=== PATIENT | female | born 1950 | race Caucasian/White ===

== ENCOUNTER 2016-07-29 07:22 | Day surgery (SDC) | payer MEDICARE, OTHER ==
[2016-07-29] MEDS ORDERED: FENTANYL CITRATE 50 MCG/ML SOL ONE (07:47)
[2016-07-29] MEDS ORDERED: LIDOCAINE HCL 1% MPF SOL ONE (07:48)
[2016-07-29] MEDS ORDERED: PROPOFOL 500 MG/50 ML EMU IV ONE (07:48)
[2016-07-29] MEDS ORDERED: BUPIVACAINE/EPI 0.5% 10 ML SOL INFIL ONE ×2 (07:55→07:56)
[2016-07-29 09:55] VITALS: RESP 20
[2016-07-29 10:05] VITALS: TEMP 97.5
[2016-07-29 10:12] VITALS: BP 120/50; PULSE 65; O2SAT 95
== END 2016-07-29 10:30 | disposition home or self-care (01) | DRG 558 ==
LOC: SURG 07:22
PROVIDERS: ATTEND Surgery
DX: M71.812 Other specified bursopathies, left shoulder (principal)
CPT/HCPCS: J3010; A6402; J2001; J2704

== ENCOUNTER 2017-03-11 14:22 | Outpatient (CLI) | payer MEDICARE, OTHER ==
[2016-07-29 10:12] VITALS: O2SAT 95
== END 2017-03-11 14:23 | disposition home or self-care (01) | DRG 554 ==
LOC: CONVCARE 14:22
PROVIDERS: ATTEND Orthopaedic Surgery
DX: M17.0 Bilateral primary osteoarthritis of knee (principal)
CPT/HCPCS: 73564

== ENCOUNTER 2017-04-15 05:35 | Inpatient (IN) | payer MEDICARE, OTHER ==
[2017-04-15] MEDS ORDERED: LACTATED RINGERS 1,000 ML IV ONE (06:00)
[2017-04-15] MEDS ORDERED: SCOPOLAMINE 1.5MG PATCH TD SCH (06:00)
[2017-04-15] MEDS ORDERED: LACTATED RINGERS 1,000 ML IV SCH (07:00)
[2017-04-15] MEDS ORDERED: SODIUM CHLORIDE 20 ML 40 ML ONE (07:09)
[2017-04-15] MEDS ORDERED: TETRACAINE HCL 1% SOL ONE (07:30)
[2017-04-15] MEDS ORDERED: KETAMINE HYDROCHLORIDE 50 MG/ML SOL ONE (08:55)
[2017-04-15] MEDS ORDERED: CEFAZOLIN SODIUM 1 GM PDS ONE ×2 (09:03→16:46)
[2017-04-15] MEDS ORDERED: EPHEDRINE SULFATE 50 MG/ML SOL ONE (09:04)
[2017-04-15] MEDS ORDERED: ONDANSETRON HCL 4 MG/2 ML SOL ONE (09:17)
[2017-04-15] MEDS ORDERED: METOCLOPRAMIDE HYDROCHLORIDE 5 MG/ML SOL ONE (09:17)
[2017-04-15] MEDS ORDERED: DEXAMETHASONE 20 MG/5 ML (4 MG/ML SOL) ONE (09:17)
[2017-04-15] MEDS ORDERED: PROPOFOL 500 MG/50 ML EMU IV ONE ×2 (09:47→10:59)
[2017-04-15] MEDS: BUPIVACAINE LIPOSOME 20 ML SUS ONE ×2 (10:08→11:09)
[2017-04-15] MEDS ORDERED: SODIUM CHLORIDE 0.9% FLUSH 10 ML SOL IV ONE ×2 (10:08→11:09)
[2017-04-15] MEDS: TRANEXAMIC ACID 100 MG/ML SOL ONE ×2 (10:20→11:17)
[2017-04-15] MEDS ORDERED: TEMAZEPAM 15MG 15 MG CAP PO PRN (11:25)
[2017-04-15] MEDS ORDERED: MORPHINE SULFATE 10 MG/ML SOL IM PRN (11:25)
[2017-04-15] MEDS ORDERED: ALUMINUM/MAGNESIUM 30 ML SUS PO PRN (11:25)
[2017-04-15] MEDS ORDERED: DIPHENHYDRAMINE 25 MG CAP PO PRN (11:25)
[2017-04-15] MEDS ORDERED: MAGNESIUM HYDROXIDE 30 ML SUS PO PRN (11:25)
[2017-04-15] MEDS ORDERED: ONDANSETRON HCL 4 MG/2 ML SOL IV PRN (11:25)
[2017-04-15] MEDS ORDERED: DIAZEPAM 5 MG TAB PO PRN (11:25)
[2017-04-15] MEDS ORDERED: SODIUM CHLORIDE 0.9% 500 ML 500 ML IV PRN (11:25)
[2017-04-15] MEDS ORDERED: FLEET ENEMA PR PRN (11:25)
[2017-04-15] MEDS ORDERED: BISACODYL 10 MG SUP PR PRN (11:25)
[2017-04-15] MEDS ORDERED: ONDANSETRON 4 MG ODT BU PRN (11:25)
[2017-04-15] MEDS ORDERED: FUROSEMIDE 40 MG TAB PO SCH (11:45)
[2017-04-15] MEDS ORDERED: BUPIVACAINE HCL 0.25% MPF 10 ML SOL INFIL ONE (12:15)
[2017-04-15] MEDS: SODIUM CHLORIDE 0.9% FLUSH 10 ML SOL IV SCH ×2 (13:06→19:15)
[2017-04-15] MEDS: ACETAMINOPHEN 500 MG 500 MG TAB PO SCH ×3 (13:09→20:27)
[2017-04-15] MEDS ORDERED: CALCIUM WITH VITAMIN D PO SCH (14:00)
[2017-04-15] MEDS: GABAPENTIN 300 MG CAP PO SCH ×2 (14:56→20:25)
[2017-04-15] MEDS: DEXTROSE/SALINE 0.45% 1,000 ML IV SCH ×2 (14:59→22:31)
[2017-04-15] MEDS ORDERED: SODIUM CHLORIDE 0.9% 100 ML 100 ML IV ONE (16:46)
[2017-04-15] MEDS: CEFAZOLIN SODIUM 1 GM PDS 2 GM in SODIUM CHLORIDE 0.9% 100 ML 100 ML IV SCH (17:03)
[2017-04-15] MEDS: OXYCODONE HYDROCHLORIDE 5 MG TAB PO PRN ×3 (19:19→22:56)
[2017-04-15] MEDS: CALCIUM CARBONATE 500 MG TAB PO SCH (20:25)
[2017-04-15] MEDS: AMITRIPTYLINE 25 MG TAB PO SCH (20:25)
[2017-04-15] MEDS: SENNOSIDES A AND B 8.6 MG TAB PO SCH (20:26)
[2017-04-15] MEDS: SIMVASTATIN 20 MG TAB PO SCH (20:28)
[2017-04-16] MEDS ORDERED: CEFAZOLIN SODIUM 1 GM PDS ONE (00:36)
[2017-04-16] MEDS ORDERED: SODIUM CHLORIDE 0.9% 100 ML 100 ML IV ONE (00:36)
[2017-04-16] MEDS: CEFAZOLIN SODIUM 1 GM PDS 2 GM in SODIUM CHLORIDE 0.9% 100 ML 100 ML IV SCH (01:21)
[2017-04-16] MEDS: SODIUM CHLORIDE 0.9% FLUSH 10 ML SOL IV SCH ×5 (01:26→20:27)
[2017-04-16] MEDS: OXYCODONE HYDROCHLORIDE 5 MG TAB PO PRN ×6 (02:10→20:31)
[2017-04-16 07:11] LABS: MEAN CORPUSCULAR HGB CONC 35.9 gm/dl (32.0-36.0)
[2017-04-16] MEDS: DEXTROSE/SALINE 0.45% 1,000 ML IV SCH ×2 (08:45→19:51)
[2017-04-16] MEDS: ACETAMINOPHEN 500 MG 500 MG TAB PO SCH ×4 (08:47→20:30)
[2017-04-16] MEDS: CELECOXIB 100 MG CAP PO SCH (08:48)
[2017-04-16] MEDS: GABAPENTIN 300 MG CAP PO SCH ×3 (08:48→20:28)
[2017-04-16] MEDS: CALCIUM CARBONATE 500 MG TAB PO SCH ×3 (08:48→20:29)
[2017-04-16] MEDS: MULTIVITAMIN2 1 EA TAB PO SCH (08:49)
[2017-04-16] MEDS: POTASSIUM CHLORIDE 10 MEQ TER PO SCH (08:49)
[2017-04-16] MEDS: CHOLECALCIFEROL 1,000 IU TAB PO SCH (08:50)
[2017-04-16] MEDS: RIVAROXABAN 10 MG TAB PO SCH (08:51)
[2017-04-16] MEDS: SERTRALINE HYDROCHLORIDE 50 MG TAB PO SCH (08:51)
[2017-04-16] MEDS ORDERED: HYDROCHLOROTHIAZIDE 25 MG TAB PO SCH (09:00)
[2017-04-16] MEDS: BUDESONIDE 3 MG ECC PO SCH (09:00)
[2017-04-16] MEDS ORDERED: LISINOPRIL 20 MG TAB PO SCH (09:00)
[2017-04-16] MEDS ORDERED: LEVOTHYROXINE SODIUM 50 MCG TAB PO SCH (09:00)
[2017-04-16] MEDS: LEVOTHYROXINE SODIUM 50 MCG TAB PO SCH (10:56)
[2017-04-16] MEDS: AMITRIPTYLINE 25 MG TAB PO SCH (20:28)
[2017-04-16] MEDS: SENNOSIDES A AND B 8.6 MG TAB PO SCH (20:30)
[2017-04-16] MEDS: SIMVASTATIN 20 MG TAB PO SCH (20:31)
[2017-04-17] MEDS: OXYCODONE HYDROCHLORIDE 5 MG TAB PO PRN ×7 (00:17→21:48)
[2017-04-17] MEDS: SODIUM CHLORIDE 0.9% FLUSH 10 ML SOL IV SCH ×6 (03:20→20:11)
[2017-04-17] MEDS: LEVOTHYROXINE SODIUM 50 MCG TAB PO SCH (06:42)
[2017-04-17 07:25] LABS: MEAN CORPUSCULAR HGB CONC 33.7 gm/dl (32.0-36.0)
[2017-04-17 07:30] LABS: CALCIUM 8.8 mg/dl (8.5-10.1); POTASSIUM 3.9 mMol/L (3.5-5.1)
[2017-04-17] MEDS ORDERED: SODIUM CHLORIDE 0.9% 250 ML 250 ML IV SCH (09:45)
[2017-04-17] MEDS: ACETAMINOPHEN 500 MG 500 MG TAB PO SCH ×4 (09:48→20:15)
[2017-04-17] MEDS: CALCIUM CARBONATE 500 MG TAB PO SCH ×3 (09:49→20:14)
[2017-04-17] MEDS: CELECOXIB 100 MG CAP PO SCH (09:49)
[2017-04-17] MEDS: GABAPENTIN 300 MG CAP PO SCH ×3 (09:49→20:13)
[2017-04-17] MEDS: CHOLECALCIFEROL 1,000 IU TAB PO SCH (09:50)
[2017-04-17] MEDS: POTASSIUM CHLORIDE 10 MEQ TER PO SCH (09:50)
[2017-04-17] MEDS: MULTIVITAMIN2 1 EA TAB PO SCH (09:50)
[2017-04-17] MEDS: RIVAROXABAN 10 MG TAB PO SCH (09:51)
[2017-04-17] MEDS: SERTRALINE HYDROCHLORIDE 50 MG TAB PO SCH (09:51)
[2017-04-17] MEDS ORDERED: SODIUM CHLORIDE 0.9% 500 ML 500 ML IV ONE (15:11)
[2017-04-17] MEDS: AMITRIPTYLINE 25 MG TAB PO SCH (20:12)
[2017-04-17] MEDS: SENNOSIDES A AND B 8.6 MG TAB PO SCH (20:14)
[2017-04-17] MEDS: SIMVASTATIN 20 MG TAB PO SCH (20:15)
[2017-04-18] MEDS: OXYCODONE HYDROCHLORIDE 5 MG TAB PO PRN ×5 (03:34→20:18)
[2017-04-18] MEDS: SODIUM CHLORIDE 0.9% FLUSH 10 ML SOL IV SCH ×4 (03:35→20:12)
[2017-04-18] MEDS: LEVOTHYROXINE SODIUM 50 MCG TAB PO SCH (06:35)
[2017-04-18 07:20] LABS: MEAN CORPUSCULAR HGB CONC 35.2 gm/dl (32.0-36.0)
[2017-04-18 07:23] LABS: POTASSIUM 4.4 mMol/L (3.5-5.1)
[2017-04-18] MEDS: CELECOXIB 100 MG CAP PO SCH (08:36)
[2017-04-18] MEDS: CALCIUM CARBONATE 500 MG TAB PO SCH ×3 (08:36→20:16)
[2017-04-18] MEDS: GABAPENTIN 300 MG CAP PO SCH ×3 (08:38→20:16)
[2017-04-18] MEDS: CHOLECALCIFEROL 1,000 IU TAB PO SCH (08:38)
[2017-04-18] MEDS: MULTIVITAMIN2 1 EA TAB PO SCH (08:38)
[2017-04-18] MEDS: ACETAMINOPHEN 500 MG 500 MG TAB PO SCH ×4 (08:38→20:17)
[2017-04-18] MEDS: RIVAROXABAN 10 MG TAB PO SCH (08:38)
[2017-04-18] MEDS: SERTRALINE HYDROCHLORIDE 50 MG TAB PO SCH (08:40)
[2017-04-18] MEDS: AMITRIPTYLINE 25 MG TAB PO SCH (20:15)
[2017-04-18] MEDS: SENNOSIDES A AND B 8.6 MG TAB PO SCH (20:16)
[2017-04-18] MEDS: SIMVASTATIN 20 MG TAB PO SCH (20:18)
[2017-04-19] MEDS: OXYCODONE HYDROCHLORIDE 5 MG TAB PO PRN ×2 (01:06→06:28)
[2017-04-19] MEDS: LEVOTHYROXINE SODIUM 50 MCG TAB PO SCH (06:28)
[2017-04-19 07:20] LABS: CALCIUM 9.3 mg/dl (8.5-10.1)
[2017-04-19 07:51] VITALS: BP 101/69; PULSE 74; RESP 18; TEMP 97.4; O2SAT 97
[2017-04-19] MEDS: CHOLECALCIFEROL 1,000 IU TAB PO SCH (09:01)
[2017-04-19] MEDS: MULTIVITAMIN2 1 EA TAB PO SCH (09:02)
[2017-04-19] MEDS: RIVAROXABAN 10 MG TAB PO SCH (09:02)
[2017-04-19] MEDS: CALCIUM CARBONATE 500 MG TAB PO SCH (09:02)
[2017-04-19] MEDS: SERTRALINE HYDROCHLORIDE 50 MG TAB PO SCH (09:02)
[2017-04-19] MEDS: ACETAMINOPHEN 500 MG 500 MG TAB PO SCH (09:02)
[2017-04-19] MEDS: GABAPENTIN 300 MG CAP PO SCH (09:03)
[2017-04-19] MEDS: CELECOXIB 100 MG CAP PO SCH (09:03)
[2017-04-19] MEDS: BUDESONIDE 3 MG ECC PO SCH (11:01)
== END 2017-04-19 12:18 | disposition swing bed (61) | DRG 462 ==
LOC: ACUTE CARE 05:35
PROVIDERS: ADMIT Orthopaedic Surgery; ATTEND Orthopaedic Surgery
PROC: 0SRC0J9 Replacement of Right Knee Joint with Synthetic Substitute, Cemented, Open Approach (ICD-10-PCS; 2017-04-15)
PROC: F01ZBZZ Bed Mobility Assessment (ICD-10-PCS; 2017-04-15)
PROC: F01ZCZZ Transfer Assessment (ICD-10-PCS; 2017-04-15)
PROC: 0SRD0J9 Replacement of Left Knee Joint with Synthetic Substitute, Cemented, Open Approach (ICD-10-PCS; principal; 2017-04-15 08:00)
PROC: 30233N1 Transfusion of Nonautologous Red Blood Cells into Peripheral Vein, Percutaneous Approach (ICD-10-PCS; 2017-04-17)
DX: M17.0 Bilateral primary osteoarthritis of knee (principal); E87.1 Hypo-osmolality and hyponatremia; D64.9 Anemia, unspecified; E03.9 Hypothyroidism, unspecified; E78.5 Hyperlipidemia, unspecified; I10 Essential (primary) hypertension; M21.061 Valgus deformity, not elsewhere classified, right knee; M21.162 Varus deformity, not elsewhere classified, left knee; K52.832 Lymphocytic colitis; R33.9 Retention of urine, unspecified; R41.0 Disorientation, unspecified
CPT/HCPCS: 36415; 73560; 80048; 85027; 94150; 99070; J0690; J1100; J2250; J2270; J2405; J2765; P9016; A6232; J2704; L1830; Q3014

== ENCOUNTER 2017-04-19 09:12 | Inpatient (IN) | payer MEDICARE, OTHER ==
[2017-04-19] MEDS ORDERED: MAGNESIUM HYDROXIDE 30 ML SUS PO PRN (12:11)
[2017-04-19] MEDS: OXYCODONE HYDROCHLORIDE 5 MG TAB PO PRN ×3 (13:28→21:55)
[2017-04-19] MEDS: BUDESONIDE 3 MG ECC PO SCH (14:19)
[2017-04-19] MEDS: ACETAMINOPHEN 500 MG 500 MG TAB PO SCH ×3 (14:22→20:46)
[2017-04-19] MEDS: GABAPENTIN 300 MG CAP PO SCH ×2 (14:22→20:46)
[2017-04-19] MEDS: CALCIUM CARBONATE 500 MG TAB PO SCH ×2 (15:22→20:46)
[2017-04-19] MEDS: FISH OIL 500 MG CAP PO SCH (20:45)
[2017-04-19] MEDS: AMITRIPTYLINE 25 MG TAB PO SCH (20:45)
[2017-04-19] MEDS: SIMVASTATIN 20 MG TAB PO SCH (20:47)
[2017-04-19 23:53] VITALS: RESP 16
[2017-04-20] MEDS: OXYCODONE HYDROCHLORIDE 5 MG TAB PO PRN ×4 (03:03→23:02)
[2017-04-20] MEDS: LEVOTHYROXINE SODIUM 50 MCG TAB PO SCH (06:53)
[2017-04-20] MEDS ORDERED: LEVOTHYROXINE SODIUM 50 MCG TAB PO SCH (07:00)
[2017-04-20] MEDS ORDERED: ACETAMINOPHEN 500 MG 500 MG TAB PO PRN (07:00)
[2017-04-20] MEDS: CHOLECALCIFEROL 1,000 IU TAB PO SCH (08:47)
[2017-04-20] MEDS: SERTRALINE HYDROCHLORIDE 50 MG TAB PO SCH (08:47)
[2017-04-20] MEDS: MULTIVITAMIN2 1 EA TAB PO SCH (08:48)
[2017-04-20] MEDS: CALCIUM CARBONATE 500 MG TAB PO SCH ×3 (08:48→20:15)
[2017-04-20] MEDS: NAPROXEN 500 MG TAB PO SCH (08:48)
[2017-04-20] MEDS: CELECOXIB 100 MG CAP PO SCH (08:48)
[2017-04-20] MEDS: FISH OIL 500 MG CAP PO SCH ×2 (08:48→20:15)
[2017-04-20] MEDS: GABAPENTIN 300 MG CAP PO SCH ×3 (08:48→20:13)
[2017-04-20] MEDS: RIVAROXABAN 10 MG TAB PO SCH (08:48)
[2017-04-20] MEDS: LISINOPRIL 20 MG TAB PO SCH (08:52)
[2017-04-20] MEDS ORDERED: ACETAMINOPHEN 500 MG 500 MG TAB PO SCH (09:00)
[2017-04-20] MEDS: ACETAMINOPHEN 500 MG 500 MG TAB PO SCH ×2 (13:21→20:13)
[2017-04-20] MEDS: AMITRIPTYLINE 25 MG TAB PO SCH (20:14)
[2017-04-20] MEDS: SIMVASTATIN 20 MG TAB PO SCH (20:16)
[2017-04-20] MEDS: SENNOSIDES A AND B 8.6 MG TAB PO SCH (20:16)
[2017-04-21] MEDS: ACETAMINOPHEN 500 MG 500 MG TAB PO SCH ×4 (01:15→19:09)
[2017-04-21] MEDS: OXYCODONE HYDROCHLORIDE 5 MG TAB PO PRN ×3 (06:26→22:12)
[2017-04-21] MEDS: LEVOTHYROXINE SODIUM 50 MCG TAB PO SCH (06:26)
[2017-04-21] MEDS: FISH OIL 500 MG CAP PO SCH ×2 (09:07→20:06)
[2017-04-21] MEDS: CELECOXIB 100 MG CAP PO SCH (09:07)
[2017-04-21] MEDS: CALCIUM CARBONATE 500 MG TAB PO SCH ×3 (09:08→20:07)
[2017-04-21] MEDS: GABAPENTIN 300 MG CAP PO SCH ×3 (09:08→20:06)
[2017-04-21] MEDS: NAPROXEN 500 MG TAB PO SCH (09:08)
[2017-04-21] MEDS: SENNOSIDES A AND B 8.6 MG TAB PO SCH ×2 (09:09→20:07)
[2017-04-21] MEDS: MULTIVITAMIN2 1 EA TAB PO SCH (09:09)
[2017-04-21] MEDS: CHOLECALCIFEROL 1,000 IU TAB PO SCH (09:10)
[2017-04-21] MEDS: LISINOPRIL 20 MG TAB PO SCH (09:11)
[2017-04-21] MEDS: SERTRALINE HYDROCHLORIDE 50 MG TAB PO SCH (09:11)
[2017-04-21] MEDS: RIVAROXABAN 10 MG TAB PO SCH (09:11)
[2017-04-21] MEDS: BUDESONIDE 3 MG ECC PO SCH (12:11)
[2017-04-21] MEDS: AMITRIPTYLINE 25 MG TAB PO SCH (20:05)
[2017-04-21] MEDS: SIMVASTATIN 20 MG TAB PO SCH (20:07)
[2017-04-22] MEDS: ACETAMINOPHEN 500 MG 500 MG TAB PO SCH ×4 (01:05→19:20)
[2017-04-22] MEDS: LEVOTHYROXINE SODIUM 50 MCG TAB PO SCH (06:25)
[2017-04-22] MEDS: OXYCODONE HYDROCHLORIDE 5 MG TAB PO PRN ×3 (06:25→14:39)
[2017-04-22] MEDS: CALCIUM CARBONATE 500 MG TAB PO SCH ×3 (09:00→20:55)
[2017-04-22] MEDS: CELECOXIB 100 MG CAP PO SCH (09:00)
[2017-04-22] MEDS: SENNOSIDES A AND B 8.6 MG TAB PO SCH ×2 (09:01→20:58)
[2017-04-22] MEDS: SERTRALINE HYDROCHLORIDE 50 MG TAB PO SCH (09:01)
[2017-04-22] MEDS: GABAPENTIN 300 MG CAP PO SCH ×3 (09:01→20:55)
[2017-04-22] MEDS: MULTIVITAMIN2 1 EA TAB PO SCH (09:01)
[2017-04-22] MEDS: LISINOPRIL 20 MG TAB PO SCH (09:01)
[2017-04-22] MEDS: NAPROXEN 500 MG TAB PO SCH (09:01)
[2017-04-22] MEDS: RIVAROXABAN 10 MG TAB PO SCH (09:01)
[2017-04-22] MEDS: CHOLECALCIFEROL 1,000 IU TAB PO SCH (09:02)
[2017-04-22] MEDS: FISH OIL 500 MG CAP PO SCH ×2 (14:41→20:56)
[2017-04-22] MEDS: AMITRIPTYLINE 25 MG TAB PO SCH (20:56)
[2017-04-22] MEDS: SIMVASTATIN 20 MG TAB PO SCH (20:57)
[2017-04-23] MEDS: ACETAMINOPHEN 500 MG 500 MG TAB PO SCH ×4 (00:46→19:00)
[2017-04-23] MEDS: OXYCODONE HYDROCHLORIDE 5 MG TAB PO PRN ×3 (07:24→14:47)
[2017-04-23] MEDS: LEVOTHYROXINE SODIUM 50 MCG TAB PO SCH (07:25)
[2017-04-23] MEDS: FISH OIL 500 MG CAP PO SCH ×2 (09:24→20:19)
[2017-04-23] MEDS: RIVAROXABAN 10 MG TAB PO SCH (09:24)
[2017-04-23] MEDS: CALCIUM CARBONATE 500 MG TAB PO SCH ×3 (09:25→20:20)
[2017-04-23] MEDS: CELECOXIB 100 MG CAP PO SCH (09:25)
[2017-04-23] MEDS: CHOLECALCIFEROL 1,000 IU TAB PO SCH (09:25)
[2017-04-23] MEDS: GABAPENTIN 300 MG CAP PO SCH ×3 (09:25→20:20)
[2017-04-23] MEDS: MULTIVITAMIN2 1 EA TAB PO SCH (09:25)
[2017-04-23] MEDS: SENNOSIDES A AND B 8.6 MG TAB PO SCH ×2 (09:25→20:21)
[2017-04-23] MEDS: NAPROXEN 500 MG TAB PO SCH (09:25)
[2017-04-23] MEDS: LISINOPRIL 20 MG TAB PO SCH (09:25)
[2017-04-23] MEDS: SERTRALINE HYDROCHLORIDE 50 MG TAB PO SCH (09:26)
[2017-04-23] MEDS: BUDESONIDE 3 MG ECC PO SCH (13:38)
[2017-04-23] MEDS: AMITRIPTYLINE 25 MG TAB PO SCH (20:18)
[2017-04-23] MEDS: SIMVASTATIN 20 MG TAB PO SCH (20:21)
[2017-04-24] MEDS: ACETAMINOPHEN 500 MG 500 MG TAB PO SCH ×4 (00:59→18:23)
[2017-04-24] MEDS: LEVOTHYROXINE SODIUM 50 MCG TAB PO SCH (07:13)
[2017-04-24] MEDS: FISH OIL 500 MG CAP PO SCH ×2 (09:28→20:14)
[2017-04-24] MEDS: LISINOPRIL 20 MG TAB PO SCH (09:29)
[2017-04-24] MEDS: GABAPENTIN 300 MG CAP PO SCH ×3 (09:29→20:15)
[2017-04-24] MEDS: RIVAROXABAN 10 MG TAB PO SCH (09:29)
[2017-04-24] MEDS: CALCIUM CARBONATE 500 MG TAB PO SCH ×3 (09:29→20:15)
[2017-04-24] MEDS: NAPROXEN 500 MG TAB PO SCH (09:29)
[2017-04-24] MEDS: CHOLECALCIFEROL 1,000 IU TAB PO SCH (09:30)
[2017-04-24] MEDS: SENNOSIDES A AND B 8.6 MG TAB PO SCH ×2 (09:30→20:15)
[2017-04-24] MEDS: MULTIVITAMIN2 1 EA TAB PO SCH (09:31)
[2017-04-24] MEDS: CELECOXIB 100 MG CAP PO SCH (09:31)
[2017-04-24] MEDS: SERTRALINE HYDROCHLORIDE 50 MG TAB PO SCH (09:31)
[2017-04-24] MEDS: OXYCODONE HYDROCHLORIDE 5 MG TAB PO PRN ×2 (10:38→19:36)
[2017-04-24] MEDS: AMITRIPTYLINE 25 MG TAB PO SCH (20:14)
[2017-04-24] MEDS: SIMVASTATIN 20 MG TAB PO SCH (20:16)
[2017-04-25] MEDS: ACETAMINOPHEN 500 MG 500 MG TAB PO SCH ×4 (00:09→18:47)
[2017-04-25] MEDS: LEVOTHYROXINE SODIUM 50 MCG TAB PO SCH (06:26)
[2017-04-25] MEDS: FISH OIL 500 MG CAP PO SCH ×2 (09:54→20:10)
[2017-04-25] MEDS: CELECOXIB 100 MG CAP PO SCH (09:54)
[2017-04-25] MEDS: SENNOSIDES A AND B 8.6 MG TAB PO SCH ×2 (09:55→20:11)
[2017-04-25] MEDS: MULTIVITAMIN2 1 EA TAB PO SCH (09:55)
[2017-04-25] MEDS: NAPROXEN 500 MG TAB PO SCH (09:55)
[2017-04-25] MEDS: GABAPENTIN 300 MG CAP PO SCH ×3 (09:55→20:13)
[2017-04-25] MEDS: CALCIUM CARBONATE 500 MG TAB PO SCH ×3 (09:55→20:10)
[2017-04-25] MEDS: CHOLECALCIFEROL 1,000 IU TAB PO SCH (09:55)
[2017-04-25] MEDS: RIVAROXABAN 10 MG TAB PO SCH (09:55)
[2017-04-25] MEDS: LISINOPRIL 20 MG TAB PO SCH (09:55)
[2017-04-25] MEDS: SERTRALINE HYDROCHLORIDE 50 MG TAB PO SCH (09:55)
[2017-04-25] MEDS: OXYCODONE HYDROCHLORIDE 5 MG TAB PO PRN ×2 (15:13→22:55)
[2017-04-25] MEDS: AMITRIPTYLINE 25 MG TAB PO SCH (20:09)
[2017-04-25] MEDS: SIMVASTATIN 20 MG TAB PO SCH (20:11)
[2017-04-26] MEDS: ACETAMINOPHEN 500 MG 500 MG TAB PO SCH ×3 (00:14→13:05)
[2017-04-26] MEDS: LEVOTHYROXINE SODIUM 50 MCG TAB PO SCH (06:47)
[2017-04-26] MEDS: FISH OIL 500 MG CAP PO SCH (08:56)
[2017-04-26] MEDS: CELECOXIB 100 MG CAP PO SCH (08:57)
[2017-04-26] MEDS: CALCIUM CARBONATE 500 MG TAB PO SCH ×2 (08:57→13:05)
[2017-04-26] MEDS: LISINOPRIL 20 MG TAB PO SCH (08:57)
[2017-04-26] MEDS: SENNOSIDES A AND B 8.6 MG TAB PO SCH (08:57)
[2017-04-26] MEDS: CHOLECALCIFEROL 1,000 IU TAB PO SCH (08:57)
[2017-04-26] MEDS: NAPROXEN 500 MG TAB PO SCH (08:57)
[2017-04-26] MEDS: SERTRALINE HYDROCHLORIDE 50 MG TAB PO SCH (08:57)
[2017-04-26] MEDS: RIVAROXABAN 10 MG TAB PO SCH (08:57)
[2017-04-26] MEDS: GABAPENTIN 300 MG CAP PO SCH ×2 (08:58→13:05)
[2017-04-26] MEDS: MULTIVITAMIN2 1 EA TAB PO SCH (08:58)
[2017-04-26 09:39] VITALS: BP 123/73; PULSE 77; TEMP 98.2; O2SAT 97
[2017-04-26] MEDS: OXYCODONE HYDROCHLORIDE 5 MG TAB PO PRN (10:11)
[2017-04-26] MEDS: BUDESONIDE 3 MG ECC PO SCH (13:06)
== END 2017-04-26 13:30 | disposition home or self-care (01) | DRG 561 ==
LOC: ACUTE CARE 12:24
PROVIDERS: ADMIT Family Medicine; ATTEND Family Medicine
PROC: F01ZDZZ Gait and/or Balance Assessment (ICD-10-PCS; principal; 2017-04-19)
PROC: F01ZBZZ Bed Mobility Assessment (ICD-10-PCS; 2017-04-19)
PROC: F01ZCZZ Transfer Assessment (ICD-10-PCS; 2017-04-19)
PROC: F02Z1ZZ Dressing Assessment (ICD-10-PCS; 2017-04-20)
PROC: F02Z0ZZ Bathing/Showering Assessment (ICD-10-PCS; 2017-04-20)
PROC: F02Z3ZZ Grooming/Personal Hygiene Assessment (ICD-10-PCS; 2017-04-20)
DX: Z47.1 Aftercare following joint replacement surgery (principal); Z96.653 Presence of artificial knee joint, bilateral

== ENCOUNTER 2017-06-03 08:40 | Outpatient (CLI) | payer MEDICARE, OTHER ==
[2017-04-26 09:39] VITALS: O2SAT 97
== END 2017-06-03 08:41 | disposition home or self-care (01) | DRG 561 ==
LOC: CONVCARE 08:40
PROVIDERS: ATTEND Orthopaedic Surgery
DX: Z47.1 Aftercare following joint replacement surgery (principal); Z96.653 Presence of artificial knee joint, bilateral
CPT/HCPCS: 73562

== ENCOUNTER 2017-07-22 15:56 | Outpatient (CLI) | payer MEDICARE, OTHER ==
[2017-04-26 09:39] VITALS: O2SAT 97
== END 2017-07-22 15:57 | disposition home or self-care (01) | DRG 561 ==
LOC: CONVCARE 15:56
PROVIDERS: ATTEND Orthopaedic Surgery
DX: Z47.1 Aftercare following joint replacement surgery (principal); Z96.653 Presence of artificial knee joint, bilateral
CPT/HCPCS: 73562

== ENCOUNTER 2017-10-14 10:01 | Inpatient (IN) | payer MEDICARE, OTHER ==
[2017-10-14] MEDS ORDERED: LACTATED RINGERS 1,000 ML IV ONE (10:45)
[2017-10-14] MEDS ORDERED: SCOPOLAMINE 1.5MG PATCH TD SCH (10:45)
[2017-10-14] MEDS: LACTATED RINGERS 1,000 ML IV SCH (11:52)
[2017-10-14] MEDS ORDERED: CEFAZOLIN SODIUM 1 GM PDS ONE ×2 (12:02→20:35)
[2017-10-14] MEDS ORDERED: DEXAMETHASONE 20 MG/5 ML (4 MG/ML SOL) ONE (12:19)
[2017-10-14] MEDS ORDERED: PROPOFOL 500 MG/50 ML EMU IV ONE (12:19)
[2017-10-14] MEDS ORDERED: ONDANSETRON HCL 4 MG/2 ML SOL ONE (12:19)
[2017-10-14] MEDS ORDERED: MORPHINE SULFATE 0.5 MG/ML SOL ONE (12:20)
[2017-10-14] MEDS ORDERED: MIDAZOLAM 2 MG/2 ML SOL ONE (12:20)
[2017-10-14] MEDS ORDERED: TRANEXAMIC ACID 100 MG/ML SOL ONE (13:10)
[2017-10-14] MEDS ORDERED: BUPIVACAINE LIPOSOME 20 ML SUS ONE (13:19)
[2017-10-14] MEDS ORDERED: SODIUM CHLORIDE 20 ML 20 ML ONE (13:19)
[2017-10-14] MEDS ORDERED: PROPOFOL 10 MG/ML EMU IV ONE ×4 (14:47→15:45)
[2017-10-14] MEDS ORDERED: FLEET ENEMA PR PRN (15:41)
[2017-10-14] MEDS ORDERED: DIPHENHYDRAMINE 25 MG CAP PO PRN (15:41)
[2017-10-14] MEDS ORDERED: MORPHINE SULFATE 10 MG/ML SOL IV PRN (15:41)
[2017-10-14] MEDS ORDERED: TEMAZEPAM 15MG 15 MG CAP PO PRN (15:41)
[2017-10-14] MEDS ORDERED: ALUMINUM/MAGNESIUM 30 ML SUS PO PRN (15:41)
[2017-10-14] MEDS ORDERED: ONDANSETRON 4 MG ODT BU PRN (15:41)
[2017-10-14] MEDS ORDERED: DIAZEPAM 5 MG TAB PO PRN (15:41)
[2017-10-14] MEDS ORDERED: ONDANSETRON HCL 4 MG/2 ML SOL IV PRN (15:41)
[2017-10-14] MEDS ORDERED: SODIUM CHLORIDE 0.9% 500 ML 500 ML IV PRN (15:41)
[2017-10-14] MEDS ORDERED: BISACODYL 10 MG SUP PR PRN (15:41)
[2017-10-14] MEDS ORDERED: MAGNESIUM HYDROXIDE 30 ML SUS PO PRN ×2 (15:41→15:47)
[2017-10-14] MEDS ORDERED: BUPIVACAINE/EPI 0.5% 10 ML SOL INFIL ONE ×2 (16:39→16:40)
[2017-10-14] MEDS: DEXTROSE/SALINE 0.45% 1,000 ML IV SCH (18:33)
[2017-10-14] MEDS: SODIUM CHLORIDE 0.9% FLUSH 10 ML SOL IV SCH ×2 (18:33→23:34)
[2017-10-14] MEDS: ACETAMINOPHEN 500 MG 500 MG TAB PO SCH ×2 (18:34→20:39)
[2017-10-14] MEDS ORDERED: SODIUM CHLORIDE 0.9% 100 ML 100 ML IV ONE (20:35)
[2017-10-14] MEDS: SENNOSIDES A AND B 8.6 MG TAB PO SCH (20:38)
[2017-10-14] MEDS: GABAPENTIN 300 MG CAP PO SCH (20:38)
[2017-10-14] MEDS: SIMVASTATIN 20 MG TAB PO SCH (20:40)
[2017-10-14] MEDS ORDERED: AMITRIPTYLINE 10 MG TAB PO SCH (21:00)
[2017-10-14] MEDS: CALCIUM WITH VITAMIN D PO SCH (21:09)
[2017-10-14] MEDS: CEFAZOLIN SODIUM 1 GM PDS 2 GM in SODIUM CHLORIDE 0.9% 100 ML 100 ML IV SCH (21:19)
[2017-10-15] MEDS ORDERED: CEFAZOLIN SODIUM 1 GM PDS ONE (06:04)
[2017-10-15] MEDS ORDERED: SODIUM CHLORIDE 0.9% 100 ML 100 ML IV ONE (06:04)
[2017-10-15] MEDS: TRAMADOL HYDROCHLORIDE 50 MG TAB PO PRN ×3 (06:22→23:54)
[2017-10-15] MEDS: CEFAZOLIN SODIUM 1 GM PDS 2 GM in SODIUM CHLORIDE 0.9% 100 ML 100 ML IV SCH (06:22)
[2017-10-15] MEDS: SODIUM CHLORIDE 0.9% FLUSH 10 ML SOL IV SCH ×4 (06:36→23:54)
[2017-10-15] MEDS: DEXTROSE/SALINE 0.45% 1,000 ML IV SCH (06:59)
[2017-10-15 07:20] LABS: HEMOGLOBIN 11.6 gm/dl (12.0-15.5); MEAN CORPUSCULAR HEMOGLOBIN 30.1 pg (27.0-32.0); MEAN CORPUSCULAR HGB CONC 33.7 gm/dl (32.0-36.0)
[2017-10-15] MEDS: OXYCODONE HYDROCHLORIDE 5 MG TAB PO PRN ×4 (08:10→21:47)
[2017-10-15] MEDS: HYDROCHLOROTHIAZIDE 25 MG TAB PO SCH (08:59)
[2017-10-15] MEDS: GABAPENTIN 300 MG CAP PO SCH ×3 (08:59→21:48)
[2017-10-15] MEDS: ACETAMINOPHEN 500 MG 500 MG TAB PO SCH ×4 (09:00→21:48)
[2017-10-15] MEDS ORDERED: LEVOTHYROXINE SODIUM 50 MCG TAB PO SCH (09:00)
[2017-10-15] MEDS ORDERED: FUROSEMIDE 40 MG TAB PO SCH (09:00)
[2017-10-15] MEDS: MULTIVITAMIN2 1 EA TAB PO SCH (09:00)
[2017-10-15] MEDS: SERTRALINE HYDROCHLORIDE 50 MG TAB PO SCH (09:01)
[2017-10-15] MEDS: RIVAROXABAN 10 MG TAB PO SCH (09:01)
[2017-10-15] MEDS: CHOLECALCIFEROL 1,000 IU TAB PO SCH (09:01)
[2017-10-15] MEDS: CALCIUM CARBONATE 500 MG TAB PO SCH ×3 (09:48→21:49)
[2017-10-15] MEDS: LISINOPRIL 20 MG TAB PO SCH (09:48)
[2017-10-15] MEDS: BUDESONIDE 3 MG ECC PO SCH (11:51)
[2017-10-15] MEDS: LACTATED RINGERS 1,000 ML IV SCH (15:22)
[2017-10-15] MEDS: CALCIUM WITH VITAMIN D PO SCH (15:23)
[2017-10-15] MEDS: SIMVASTATIN 20 MG TAB PO SCH (21:47)
[2017-10-15] MEDS: SENNOSIDES A AND B 8.6 MG TAB PO SCH (21:48)
[2017-10-15] MEDS: AMITRIPTYLINE 25 MG TAB PO SCH (21:49)
[2017-10-16] MEDS: TRAMADOL HYDROCHLORIDE 50 MG TAB PO PRN ×2 (05:56→12:55)
[2017-10-16] MEDS: LEVOTHYROXINE SODIUM 50 MCG TAB PO SCH (06:00)
[2017-10-16 07:19] LABS: HEMOGLOBIN 10.4 gm/dl (12.0-15.5); MEAN CORPUSCULAR HEMOGLOBIN 29.5 pg (27.0-32.0); MEAN CORPUSCULAR HGB CONC 33.5 gm/dl (32.0-36.0)
[2017-10-16] MEDS: SODIUM CHLORIDE 0.9% FLUSH 10 ML SOL IV SCH ×4 (08:30→23:38)
[2017-10-16] MEDS: OXYCODONE HYDROCHLORIDE 5 MG TAB PO PRN ×3 (08:30→21:01)
[2017-10-16] MEDS: ACETAMINOPHEN 500 MG 500 MG TAB PO SCH ×4 (08:31→21:02)
[2017-10-16] MEDS: CHOLECALCIFEROL 1,000 IU TAB PO SCH (08:31)
[2017-10-16] MEDS: BUDESONIDE 3 MG ECC PO SCH (08:31)
[2017-10-16] MEDS: MULTIVITAMIN2 1 EA TAB PO SCH (08:32)
[2017-10-16] MEDS: HYDROCHLOROTHIAZIDE 25 MG TAB PO SCH (08:33)
[2017-10-16] MEDS: CALCIUM CARBONATE 500 MG TAB PO SCH ×3 (08:33→21:02)
[2017-10-16] MEDS: GABAPENTIN 300 MG CAP PO SCH ×3 (08:33→21:03)
[2017-10-16] MEDS: RIVAROXABAN 10 MG TAB PO SCH (08:34)
[2017-10-16] MEDS: LISINOPRIL 20 MG TAB PO SCH (08:34)
[2017-10-16] MEDS: SERTRALINE HYDROCHLORIDE 50 MG TAB PO SCH (08:35)
[2017-10-16] MEDS: CELECOXIB 100 MG CAP PO SCH (10:52)
[2017-10-16] MEDS: SENNOSIDES A AND B 8.6 MG TAB PO SCH (21:01)
[2017-10-16] MEDS: SIMVASTATIN 20 MG TAB PO SCH (21:01)
[2017-10-16] MEDS: AMITRIPTYLINE 25 MG TAB PO SCH (21:01)
[2017-10-17] MEDS: LEVOTHYROXINE SODIUM 50 MCG TAB PO SCH (06:12)
[2017-10-17] MEDS: OXYCODONE HYDROCHLORIDE 5 MG TAB PO PRN ×2 (06:12→20:54)
[2017-10-17 07:23] LABS: HEMOGLOBIN 9.7 gm/dl (12.0-15.5); MEAN CORPUSCULAR HEMOGLOBIN 29.3 pg (27.0-32.0); MEAN CORPUSCULAR HGB CONC 32.8 gm/dl (32.0-36.0)
[2017-10-17] MEDS ORDERED: POLYETHYLENE GLYCOL 17 GM/1 TBS PDS PO PRN (08:34)
[2017-10-17] MEDS: SODIUM CHLORIDE 0.9% FLUSH 10 ML SOL IV SCH ×3 (09:32→20:55)
[2017-10-17] MEDS: BUDESONIDE 3 MG ECC PO SCH ×2 (09:33→09:43)
[2017-10-17] MEDS: CELECOXIB 100 MG CAP PO SCH (09:33)
[2017-10-17] MEDS: HYDROCHLOROTHIAZIDE 25 MG TAB PO SCH (09:33)
[2017-10-17] MEDS: MULTIVITAMIN2 1 EA TAB PO SCH (09:34)
[2017-10-17] MEDS: ACETAMINOPHEN 500 MG 500 MG TAB PO SCH ×4 (09:34→20:55)
[2017-10-17] MEDS: CALCIUM CARBONATE 500 MG TAB PO SCH ×3 (09:34→20:55)
[2017-10-17] MEDS: GABAPENTIN 300 MG CAP PO SCH ×3 (09:34→20:54)
[2017-10-17] MEDS: CHOLECALCIFEROL 1,000 IU TAB PO SCH (09:35)
[2017-10-17] MEDS: LISINOPRIL 20 MG TAB PO SCH (09:35)
[2017-10-17] MEDS: TRAMADOL HYDROCHLORIDE 50 MG TAB PO PRN (09:35)
[2017-10-17] MEDS: SERTRALINE HYDROCHLORIDE 50 MG TAB PO SCH (09:35)
[2017-10-17] MEDS: RIVAROXABAN 10 MG TAB PO SCH (09:35)
[2017-10-17] MEDS: SIMVASTATIN 20 MG TAB PO SCH (20:54)
[2017-10-17] MEDS: AMITRIPTYLINE 25 MG TAB PO SCH (20:54)
[2017-10-17] MEDS: SENNOSIDES A AND B 8.6 MG TAB PO SCH (20:55)
[2017-10-17 21:14] VITALS: RESP 16; TEMP 98.4; O2SAT 95
[2017-10-18] MEDS: SODIUM CHLORIDE 0.9% FLUSH 10 ML SOL IV SCH ×2 (05:38→08:30)
[2017-10-18] MEDS: LEVOTHYROXINE SODIUM 50 MCG TAB PO SCH (06:01)
[2017-10-18 08:20] VITALS: BP 126/63; PULSE 69
[2017-10-18] MEDS: LISINOPRIL 20 MG TAB PO SCH (08:29)
[2017-10-18] MEDS: OXYCODONE HYDROCHLORIDE 5 MG TAB PO PRN (08:29)
[2017-10-18] MEDS: ACETAMINOPHEN 500 MG 500 MG TAB PO SCH ×2 (08:30→12:59)
[2017-10-18] MEDS: MULTIVITAMIN2 1 EA TAB PO SCH (08:30)
[2017-10-18] MEDS: BUDESONIDE 3 MG ECC PO SCH (08:30)
[2017-10-18] MEDS: HYDROCHLOROTHIAZIDE 25 MG TAB PO SCH (08:31)
[2017-10-18] MEDS: CALCIUM CARBONATE 500 MG TAB PO SCH (08:31)
[2017-10-18] MEDS: SERTRALINE HYDROCHLORIDE 50 MG TAB PO SCH (08:31)
[2017-10-18] MEDS: RIVAROXABAN 10 MG TAB PO SCH (08:31)
[2017-10-18] MEDS: CHOLECALCIFEROL 1,000 IU TAB PO SCH (08:31)
[2017-10-18] MEDS: GABAPENTIN 300 MG CAP PO SCH (08:31)
[2017-10-18] MEDS: CELECOXIB 100 MG CAP PO SCH (08:36)
[2017-10-18] MEDS: TRAMADOL HYDROCHLORIDE 50 MG TAB PO PRN (12:59)
== END 2017-10-18 13:35 | disposition home or self-care (01) | DRG 468 ==
LOC: ACUTE CARE 10:01
PROVIDERS: ADMIT Orthopaedic Surgery; ATTEND Orthopaedic Surgery
PROC: 0MQP0ZZ Repair Left Knee Bursa and Ligament, Open Approach (ICD-10-PCS; 2017-10-14)
PROC: 0SWW0JZ Revision of Synthetic Substitute in Left Knee Joint, Tibial Surface, Open Approach (ICD-10-PCS; principal; 2017-10-14 12:45)
PROC: F01K5ZZ Range of Motion and Joint Integrity Assessment of Musculoskeletal System - Upper Back / Upper Extremity (ICD-10-PCS; 2017-10-15)
PROC: F0134ZZ Motor Function Assessment of Neurological System - Whole Body (ICD-10-PCS; 2017-10-15)
PROC: F02Z3ZZ Grooming/Personal Hygiene Assessment (ICD-10-PCS; 2017-10-15)
DX: S83.412A Sprain of medial collateral ligament of left knee, initial encounter (principal); D64.9 Anemia, unspecified; E03.9 Hypothyroidism, unspecified; E78.5 Hyperlipidemia, unspecified; I10 Essential (primary) hypertension
CPT/HCPCS: 36415; 73560; 85018; 85027; 94150; 99070; J0690; J1100; J2250; J2270; J2274; J2405; A6232; A9270; A9270-GY; J2704; J3490; Q3014

== ENCOUNTER 2017-12-02 07:35 | Outpatient (CLI) | payer MEDICARE, OTHER ==
[2017-10-15 13:41] VITALS: O2SAT 94
== END 2017-12-02 07:36 | disposition home or self-care (01) | DRG 561 ==
LOC: CONVCARE 07:35
PROVIDERS: ATTEND Orthopaedic Surgery
DX: Z47.89 Encounter for other orthopedic aftercare (principal); Z98.890 Other specified postprocedural states
CPT/HCPCS: 73560

== ENCOUNTER 2018-06-02 09:59 | Day surgery (SDC) | payer MEDICARE, OTHER ==
[2018-06-02] MEDS ORDERED: DEXAMETHASONE SOD PHOS PF 10 MG/ML SOL IJ ONE (11:37)
[2018-06-02] MEDS ORDERED: BUPIVACAINE HCL 0.25% MPF 30 ML SOL INFIL ONE (11:37)
[2018-06-02 12:01] VITALS: RESP 20; TEMP 97.4
[2018-06-02 12:06] VITALS: BP 164/90; PULSE 64; O2SAT 97
== END 2018-06-02 12:22 | disposition home or self-care (01) | DRG 552 ==
LOC: SURG 09:59
PROVIDERS: ATTEND Nurse Anesthetist, Certified Registered
DX: M48.062 Spinal stenosis, lumbar region with neurogenic claudication (principal)
CPT/HCPCS: J1100

== ENCOUNTER 2018-08-03 14:05 | Day surgery (SDC) | payer MEDICARE, OTHER ==
[2018-08-03 14:29] VITALS: TEMP 98.6
[2018-08-03] MEDS ORDERED: BUPIVACAINE HCL 0.25% MPF 30 ML SOL INFIL ONE (14:53)
[2018-08-03] MEDS: DEXAMETHASONE SOD PHOS PF 10 MG/ML SOL IJ ONE ×2 (15:11→15:19)
[2018-08-03 15:31] VITALS: BP 117/71; PULSE 73; RESP 16; O2SAT 96
== END 2018-08-03 17:50 | disposition home or self-care (01) | DRG 552 ==
LOC: SURG 14:05
PROVIDERS: ATTEND Nurse Anesthetist, Certified Registered
DX: M48.062 Spinal stenosis, lumbar region with neurogenic claudication (principal)
CPT/HCPCS: J1100

== ENCOUNTER 2019-01-24 11:05 | Day surgery (SDC) | payer MEDICARE, OTHER ==
[2019-01-24 11:34] VITALS: RESP 16
[2019-01-24] MEDS ORDERED: BUPIVACAINE HCL 0.25% MPF 30 ML SOL INFIL ONE (11:57)
[2019-01-24] MEDS: DEXAMETHASONE SOD PHOS PF 10 MG/ML SOL IJ ONE ×2 (12:13→12:24)
[2019-01-24 12:44] VITALS: BP 112/82; PULSE 66; TEMP 99.3; O2SAT 96
== END 2019-01-24 15:00 | disposition home or self-care (01) | DRG 552 ==
LOC: SURG 11:05
PROVIDERS: ATTEND Nurse Anesthetist, Certified Registered
DX: M48.062 Spinal stenosis, lumbar region with neurogenic claudication (principal); M99.53 Intervertebral disc stenosis of neural canal of lumbar region
CPT/HCPCS: J1100